=== PATIENT | male | born 1960 | race Two or more races ===

== ENCOUNTER 2017-01-25 17:31 | Emergency (ER) | payer OTHER ==
[~2017-01-25] VITALS: Ht 188 cm; Wt 81.6 kg
[2017-01-25] MEDS ORDERED: LORazepam Inj 2mg/ml 1ml IV ONE (17:45)
[2017-01-25 17:59] VITALS: BP 137/72
[2017-01-25] MEDS ORDERED: LORazepam Inj 2mg/ml 1ml IM ONE (19:00)
[2017-01-25] MEDS ORDERED: Ketorolac 30mg Inj IM ONE (19:30)
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
[2017-01-25] MEDS ORDERED: IBUPROFEN600 MG ORAL (22:05)
[2017-01-25 23:14] VITALS: BP_SYST 130; BP_SYST 137; BP_DIAS 70; BP_DIAS 72
--- NOTE | 2017-01-27 09:05 | Diagnostic Imaging Report ---
Indication: Altered mental status Technique: Contiguous 5 mm thick transaxial imaging of the head obtained in a Siemens Sensation [address] scanner. Soft tissue and bone windows generated. Total Dose length Product (DLP): [address] Dose Index Volume (CTDIvol): 70.38 mGy Comparison: none Findings: The size and configuration of the cortical sulci, basal cisterns, and ventricles are within normal limits for age. There is no mass effect, midline shift, or edema identified. There is no evidence of acute hemorrhage or abnormal intra-axial or extra-axial fluid collections. The bones and soft tissues are unremarkable. Impression: No mass effect, edema or acute bleed. [facility] has communicated the preliminary results to the Emergency Department. Their findings are largely concordant with this report. The CT scanner at [facility] is accredited by the [employer] and the scans are performed using dose optimization techniques as appropriate to a performed exam including Automatic Exposure control.
== END 2017-01-25 23:18 | disposition home or self-care (01) ==
LOC: EDBD 17:31 → EMR 19:17
DX: F14.10 Cocaine abuse, uncomplicated (principal); R52 Pain, unspecified; R41.82 Altered mental status, unspecified
CPT/HCPCS: 70450; 96372; 99284